=== PATIENT | female | born 1930 | race Caucasian/White ===

== ENCOUNTER → 2016-11-04 | Outpatient (CLI) | payer MEDICARE, OTHER ==
[~2016-11-04] MED LIST: PRED20TA PO
[2016-11-04 10:46] VITALS: BP 128/83
--- NOTE | 2016-11-04 10:46 | Urgent Care T Sheet Gen (E) ---
Intake General Temperature (Fahrenheit): 97.8 Pulse: 78 Blood Pressure Systolic: 128 Blood Pressure Diastolic: 83 Respirations: 20 SPO2: 98 Description of Symptoms Patient presents with probable allergic reaction. Patient was out in her flower garden all afternoon on Wednesday. States it was windy and she was pulling weeds. Patient states she is sensitive to certain allergens, maury poison belkys, however doesn't believe her symptoms are related to that. Patient complains of red, itch, swollen eyes and surrounding skin, red and itchy neck and red and itchy arms. Used some OTC poison belkys cream without relief. Patient states she has needed steroids in the past. No SOB or throat swelling. Eyes are tearing but no purulent drainage. No blurred vision or light sensitivity. History of Present Illness Home Meds Active Scripts Prednisone 20 Mg [id number] Mg PO DAILY #3 TAB Prov:LALY ADDISON 11/04/16 Respiratory Constitutional Symptoms: No syptoms reported EENTM: No Eye pain, No Blurred vision, Eye tearing Respiratory: No symptoms reported Cardiovascular: No symptoms reported Gastrointestinal/Abdominal: No symptoms reported Skin: Change in color Rash All Other Systems Reviewed Remaining Systems: All other systems reviewed with negative findings Physical Exam Physical Exam General Appearance: WD/WN No apparent distress Eyes, Ears, Nose, Throat Ex: PERRL/EOMI (conjunctiva are not red. boths eyes tear constantly. ) Respiratory Exam: No respiratory distress Skin Exam: Other (examination of the skin reveals redness and swelling surrounding the eyes, worse along the distal aspect (just below the eyes). red irritated skin also noted along the volar forearms and anterior neck. skin is blanchable and not hot.) Departure Urgent Care Impression Impression: Primary Impression: Allergic contact dermatitis Qualified Code: L23.7 - Allergic contact dermatitis due to plants, except food Additional Impression: Allergic conjunctivitis Qualified Code: H10.13 - Acute atopic conjunctivitis, bilateral Departure Disposition: 01 HOME OR SELF-CARE Condition: Stable Referrals: Rsusell Vargas MD (PCP) Additional Instructions: The patient takes no daily meds. I have started her on Prednisone x 3 days. This should calm everything down. She is miserable and keeps rubbing and scratching. Hoping the steroid kicks in quickly. I have also instructed her to take Claritin daily and use OTC ketotifen ophth allergy drops. May DC the drops once the eyes calm down. Cold compress to the eyes. Rest. Fluids Return as needed Present to the ER if shortness of breath develops or if vision becomes compromised Patient understands DC instructions. All questions were answered. Scripts Prednisone 20 Mg [id number] Mg PO DAILY #3 TAB Prov:LALY ADDISON 11/04/16 End of report . LALY ADDISON November 04, 2016 10:20
== END ==
LOC: MHUC 10:02
PROVIDERS: ATTEND Physician Assistant
DX: L23.7 Allergic contact dermatitis due to plants, except food (principal); H10.13 Acute atopic conjunctivitis, bilateral
CPT/HCPCS: 99213